=== PATIENT | female | born 1990 | race American Indian/Alaskan Native ===

== ENCOUNTER 2021-02-13 10:11 | Emergency (ER) | payer SELFPAY ==
[2021-02-13 10:30] VITALS: BP 135/86
--- NOTE | 2021-02-13 11:42 | Event Note ---
ED Screening Note ED Screening Note: Patient is a 30-year-old female who presents emergency room with complaints of a gush of clear vaginal fluid that occurred earlier this morning She denies any vaginal bleeding, dysuria, vaginal itching, vaginal burning, abdominal pain, pelvic pain, back pain States her last menstrual cycle was in September 2020 She reports that she has not taken a test This initial assessment/diagnostic orders/clinical plan/treatment(s) is/are subject to change based on patients health status, clinical progression and re- assessment by fellow clinical providers in the ED. Further treatment and workup at subsequent clinical providers discretion. Patient/guardian urged not to elope from the ED as their condition may be serious if not clinically assessed and managed. Initial orders include: Labs, urine
[2021-02-13 12:53] LABS: Basophils % (Auto) 0.9 % (0.0-1.8); Eosinophils # (Auto) 0.2 K/mm3 (0.0-0.4); Eosinophils % (Auto) 3.3 % (0.0-4.3); Hematocrit 22.2 % (30.3-42.9); Hemoglobin 6.4 gm/dl (10.1-14.3); Lymphocytes # (Auto) 1.6 K/mm3 (1.2-5.4); Lymphocytes % (Auto) 29.7 % (13.4-35.0); Mean Corpuscular HGB Conc 29 % (30-34); Monocytes # (Auto) 0.3 K/mm3 (0.0-0.8); Monocytes % (Auto) 6.5 % (0.0-7.3); Platelet Count 207 K/mm3 (140-440)
[2021-02-13 12:55] LABS: Mean Corpuscular Volume 65 fl (79-97); Red Cell Distribution Width 21.4 % (13.2-15.2)
[2021-02-13 13:02] LABS: Bacteria,Urine 1+ /HPF (Negative); Bilirubin,Urine NEG (Negative); Blood,Urine LG (Negative); Color,Urine Yellow (Yellow); Mucus,Urine FEW /HPF; Urobilinogen,Urine < 2.0 mg/dL (<2.0)
[2021-02-13 13:05] LABS: Alanine Aminotransferase 8 units/L (7-56); Albumin 4.3 g/dL (3.9-5); Blood Urea Nitrogen 5 mg/dL (7-17); Calcium 8.2 mg/dL (8.4-10.2); Hemolysis Index 0
[2021-02-13 13:08] LABS: BUN/Creatinine Ratio 8
--- NOTE | 2021-02-13 13:25 | Emergency Department Report ---
Blank Doc - Documentation Documentation: As I entered the room and introduced myself, patient stated she would like to have a female provider to evaluate and treat her. Patient stated she does not want a male provider during this visit today. Patient's chart was then given to RN for a female provider to see evaluate/treat the patient at this time.
== END 2021-02-13 15:20 | disposition left against medical advice (07) ==
LOC: ED 10:11
DX: N89.8 Other specified noninflammatory disorders of vagina (principal); Z53.21 Procedure and treatment not carried out due to patient leaving prior to being seen by health care provider
CPT/HCPCS: 36415; 80053; 81001; 84702; 85025; 87086